=== PATIENT | female | born 1975 | race Caucasian/White ===

== ENCOUNTER 2022-08-01 19:27 | Emergency (ER) | payer BC ==
[2022-08-01 22:29] LABS: HEMOGLOBIN 10.7 gm/dl (12.3-15.3); RED BLOOD COUNT 4.5 M/UL (4.00-5.10); WHITE BLOOD COUNT 9.8 K/UL (4.5-11.0)
[2022-08-01] MEDS ORDERED: CLEOCIN HCL150 MG PO (22:49)
[2022-08-01 22:52] LABS: BUN/CREATININE RATIO 9 (0-10)
== END 2022-08-01 23:04 | disposition home or self-care (01) ==
LOC: ER1 19:27
PROVIDERS: Physician Assistant Medical
DX: K04.7 Periapical abscess without sinus (principal); L03.211 Cellulitis of face
CPT/HCPCS: 70487; 80053; 83605; 85025; 87040; 96374; 96375; 99284; J2405; Q9967